=== PATIENT | male | born 1965 | race Caucasian/White ===

== ENCOUNTER 2023-04-01 05:15 | Day surgery (SDC) | payer OTHER ==
[2023-03-28 11:44] VITALS: BMI 37.5
[2023-04-01 12:00] VITALS: RESP 18
[2023-04-01] MEDS ORDERED: FENTANYL CITRATE/PF 50 MCG/ML VIAL ONE (15:28)
[2023-04-01] MEDS ORDERED: MIDAZOLAM HCL 2 MG/2 ML SINGLE DOSE VIAL ONE (15:28)
[2023-04-01] MEDS ORDERED: ONDANSETRON 4 MG/2 ML VIAL ONE (15:43)
[2023-04-01] MEDS ORDERED: DEXAMETHASONE SOD PHOSPHATE 4 MG/1 ML VIAL ONE (15:43)
[2023-04-01 19:36] VITALS: BP 131/77; PULSE 74; TEMP 98
== END 2023-04-01 18:00 | disposition home or self-care (01) ==
LOC: JASU-SURG 05:15
PROVIDERS: ATTEND Urology
PROC: 0TF4XZZ Fragmentation in Left Kidney Pelvis, External Approach (ICD-10-PCS; principal; 2023-04-01 14:00)
DX: N20.0 Calculus of kidney (principal)